=== PATIENT | female | born 1960 | race Two or more races ===

== ENCOUNTER 2020-07-14 07:34 | Day surgery (SDC) | payer OTHER ==
[~2020-07-14] VITALS: Ht 157.5 cm; Wt 74.8 kg
[2020-07-14] VITALS (9 sets, daily range): BP systolic 118–143; BP diastolic 69–89
--- NOTE | 2020-07-14 06:39 | Anethesia Preoperative Eval ---
Anesthesia Pre-op PMH/ROS General Date of Evaluation: Jul 14, 2020 Time of Evaluation: 06:36 Anesthesiologist: tereso ASA Score: ASA 3 Mallampati Score Class I : Soft palate, uvula, fauces, pillars visible Class II: Soft palate, uvula, fauces visible Class III: Soft palate, base of uvula visible Class IV: Only hard plate visible Mallampati Classification: Class II Surgeon: willie Diagnosis: abdominal pain, gerd Surgical Procedure: egd Anesthesia History: none Social History: smoking - nonsmoker Family History: no anesthesia problems Allergies: Coded Allergies: CAFFEINE (Verified Allergy, Intermediate, rash, 07/13/20) LATEX, NATURAL RUBBER (Verified Allergy, Intermediate, rash, 07/13/20) Medications: see eMAR Patient NPO?: Yes Past Medical History Cardiovascular: Reports: HTN Gastrointestinal/Genitourinary: Reports: GERD HEENT: Reports: other - decreased visual acuity Hematology/Immune: Reports: other - covid-19 negative Musculoskeletal/Integumentary: Reports: other - back pain PSxH Narrative: left shoulder surgery Anesthesia Pre-op Phys. Exam Physician Exam Last Vital Signs Date Time Temp Pulse Resp B/P (MAP) Pulse Ox O2 Delivery O2 Flow Rate FiO2 07/14/20 08:27 Room Air 07/14/20 08:10 98.3 71 18 135/89 100 Constitutional: NAD Neurologic: CN 2-12 intact Cardiovascular: RRR Respiratory: CTA Gastrointestinal: S/NT/ND Airway Exam Mallampati Score: Class II MO: limited Neck: flexible TMD: 2fb ROM: limited Teeth: missing Dentures: upper Anesthesia Pre-op A/P Labs Microbiology Date/Time Source Procedure Growth Status 07/10/20 08:45 Nasopharynx SARS-CoV-2 RdRp Gene Assay - Final Complete Risk Assessment & Plan Assessment: asa3 Plan: mac Status Change Before Surgery: No Pre-Antibiotics Drug: Lyric Villalobos MD Jul 14, 2020 06:39
[~2020-07-14 07:34] MED LIST: Atropine Inj 1mg/10ml Syr IVP PRN; DiphenhydrAMINE 50mg/ml Inj IVP PRN; LR 1000ml 1,000 ML IVLG SCH; Labetalol 5mg/ml 20ml vial IV PRN; Midazolam 2mg/2ml Inj IVP PRN; fentaNYL 100 mcg/2 mL IV PRN
--- NOTE | 2020-07-14 07:48 | Short Stay Surgery H&P ---
History of Present Illness History of Present Illness Chief Complaint Abdominal/epigastric pains/heartburn/GERDs HPI Kayla Martini is a 60 year old female who was admitted on for Abdominal Pain, Gerd Patient History Allergies: Coded Allergies: CAFFEINE (Verified Allergy, Intermediate, rash, 07/13/20) LATEX, NATURAL RUBBER (Verified Allergy, Intermediate, rash, 07/13/20) PAST MEDICAL HISTORY: (1) History of shoulder surgery Medication History No Active Prescriptions or Reported Meds Review of Systems Cardiovascular: Reports: no symptoms Respiratory: Reports: no symptoms Skeletal: Reports: trauma Gastrointestinal: Reports: gastro esophageal reflux disease Genitourinary: Reports: no symptoms Neurologic: Reports: no symptoms Endocrine: Reports: no symptoms Hematologic: Reports: no symptoms Physical Exam Skin: normal HENT: normal Heart: normal Abdomen: abnormal Extremities: normal Genitourinary: normal Plan Plan of Care Upper GI. endoscopy and biopsy. Preop Interventions None. Summary of Findings See the reports. Attestation Are the patient's medical conditions optimized for surgery? Attestation Response: yes Lissett Rosario MD Jul 14, 2020 07:48
--- NOTE | 2020-07-14 07:49 | Pre-Procedure Note/Attestation ---
Pre-Procedure Note/Attestation Complete Prior to Procedure Planned Procedure: left Procedure Narrative: Examination of the upper GI.tract via endoscopy. Indications for Procedure Pre-Operative Diagnosis: R/O Gastritis/peptic ulcer/esophagitis Attestation I attest that I discussed the nature of the procedure; its benefits; risks and complications; and alternatives (and the risks and benefits of such alternatives), prior to the procedure, with the patient (or the patient's legal pharmaceutical service representative). I attest that, if there was a reasonable possibility of needing a blood transfusion, the patient (or the patient's legal pharmaceutical service representative) was given the [place] Department [employer] standardized written summary, pursuant to the [place] Blood Safety Act ([place] Health and Safety Code # 1645, as amended). I attest that I re-evaluated the patient just prior to the surgery and that there has been no change in the patient's H&P, except as documented below: Lissett Rosario MD Jul 14, 2020 07:49
--- NOTE | 2020-07-14 07:50 | Discharge Instructions ---
Discharge Instructions Discharge Instructions Follow up with: Make appointment to see the doctor in 2 weeks in office For Congestive Heart Failure Reminder Report to your physician any weight gain of 5 pounds or more in one week. Lissett Rosario MD Jul 14, 2020 07:50
[2020-07-14] MEDS ORDERED: LR 1000ml ONE (08:30)
[2020-07-14] MEDS ORDERED: Lidocaine 1% MPF 10mg/ml 5ml ONE (08:30)
--- NOTE | 2020-07-14 08:49 | Endoscopy Procedure Note ---
Endoscopy Procedure Note General Indication for Procedure: Abdominal pains, nausea and vomiting spells, dysphagia. Procedures Performed: EGD - Mild gastritis, biopsies obtained from gastric body. Specimen: yes Pt Tolerated Procedure Well: Yes Estimated Blood Loss: none Anesthesia Anesthesiologist: Dr. Solorio Anesthesia: moderate sedation Medications Medication Given: see anesthesia record Inserted Devices Implant(s) used?: No Quality Quality of Bowel Preparation: Excellent Was there any complications?: No GI Core Measures 50 yrs or older w/o bx or poly: Not Applicable 10yrs. F/U recommended: Not Applicable If not recommended, why?: Med reason:<3 yrs.: System Reason:<3 yrs.: Lissett Rosario MD Jul 14, 2020 08:49
--- NOTE | 2020-07-14 09:11 | Immediate Post-Op Evaluation ---
Immediate Post-Op Evalulation Immediate Post-Op Evalulation Procedure: egd w/bx Date of Evaluation: Jul 14, 2020 Time of Evaluation: 09:09 IV Fluids: 250ml lr Blood Products: none Estimated Blood Loss: negligible Blood Pressure Systolic: 119 Blood Pressure Diastolic: 80 Pulse Rate: 78 Respiratory Rate: 18 O2 Sat by Pulse Oximetry: 100 Temperature (Fahrenheit): 97.6 Pain Score (1-10): 0 Nausea: No Vomiting: No Complications none Patient Status: awake, reacts, patent Hydration Status: adequate Drug: Lyric Villalobos MD Jul 14, 2020 09:11
--- NOTE | 2020-07-14 09:12 | 48 Hour Post Anesthesia Eval ---
Post Anesthesia Evaluation Procedure: egd w/bx Date of Evaluation: Jul 14, 2020 Time of Evaluation: 09:11 Blood Pressure Systolic: 119 0: 80 Pulse Rate: 78 Respiratory Rate: 18 Temperature (Fahrenheit): 97.6 O2 Sat by Pulse Oximetry: 100 Airway: patent Nausea: No Vomiting: No Pain Intensity: 0 Hydration Status: adequate Cardiopulmonary Status: stable Mental Status/LOC: patient returned to baseline Post-Anesthesia Complications: none Follow-up care needed: N/A Lyric Solorio MD Jul 14, 2020 09:12
--- NOTE | 2020-07-14 09:30 | Procedure Note ---
DATE OF PROCEDURE: 07/14/2020 SURGEON: Lissett Rosario MD. PROCEDURE: Esophagogastroduodenoscopy with biopsy. PREOPERATIVE DIAGNOSES: Abdominal pain, nausea, vomiting, heartburn, dysphagia, acid reflux rule out peptic ulcer disease secondary to use of NSAIDs, rule out esophagitis. POSTOPERATIVE DIAGNOSIS: Mild generalized gastritis, otherwise normal upper GI endoscopy. Biopsy was done from gastric body. MEDICATION USED: Per Dr. Cruz, anesthesiologist. INSTRUMENT: GIF Olympus upper GI video endoscope. DESCRIPTION OF PROCEDURE: The patient after arriving at endoscopy unit, was told about risks and benefits of the procedure which she accepted and signed informed consent. She was then put on the left lateral decubitus position. After adequate IV sedation, the scope was gently passed through the cricopharyngeal area, was lodged into the upper esophagus and gradually advanced towards gastroesophageal junction. The entire length of esophagus looked normal. No evidence of varices, inflammatory process, ulceration, etc was found. The GE junction looked also completely normal. No evidence of Guillory's mucosa or hiatal hernia noted. At this time, the scope was advanced into the stomach. Gastric cavity was distended with insufflation of air and gradually the areas of the fundus and the body and antrum were examined that they looked completely normal. No evidence of any major inflammatory process except some mild gastritis noted with erythema of the gastric mucosa consistent with mild gastritis. No polyps or tumor noted. At this time, a random biopsy from gastric body was obtained and subsequently scope was passed through the pylorus. First and second portion of duodenum were found to be completely normal. The scope was then pulled back into the stomach. Retroflexion flexion maneuver was applied and the area of the gastroesophageal junction was examined which looked completely normal at this time. Finally, the scope was pulled out and the procedure was terminated. The patient tolerated the procedure well and left the endoscopy room in a good condition. Lissett Rosario M.D. DR: Julio C JOB#: [id number] CC:
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
== END 2020-07-14 10:35 | disposition home or self-care (01) ==
LOC: GAS 07:34
DX: K29.70 Gastritis, unspecified, without bleeding (principal); B96.81 Helicobacter pylori [H. pylori] as the cause of diseases classified elsewhere; I10 Essential (primary) hypertension; K21.9 Gastro-esophageal reflux disease without esophagitis; Z91.040 Latex allergy status; Z91.048 Other nonmedicinal substance allergy status
CPT/HCPCS: 43239; 94003; J2704; J7120; U0002; 94150